=== PATIENT | female | born 1945 | race Caucasian/White ===

== ENCOUNTER 2016-10-16 15:16 | Emergency (ER) | payer MEDICARE, OTHER ==
[2016-10-16 17:49] LABS: HEMOGLOBIN 13.8 gm/dl (12.3-15.3); RED BLOOD COUNT 4.58 M/UL (4.00-5.10); WHITE BLOOD COUNT 7.9 K/UL (4.5-11.0)
== END 2016-10-16 21:56 | disposition home or self-care (01) ==
LOC: ER1 15:16
PROVIDERS: Specialist/Technologist Athletic Trainer
DX: K43.9 Ventral hernia without obstruction or gangrene (principal); R94.4 Abnormal results of kidney function studies; R74.0 Nonspecific elevation of levels of transaminase and lactic acid dehydrogenase [LDH]; I10 Essential (primary) hypertension; I25.10 Atherosclerotic heart disease of native coronary artery without angina pectoris; E03.9 Hypothyroidism, unspecified; Z90.49 Acquired absence of other specified parts of digestive tract; F17.200 Nicotine dependence, unspecified, uncomplicated; Z88.6 Allergy status to analgesic agent; Z79.899 Other long term (current) drug therapy
CPT/HCPCS: 36415; 80053; 81001; 82140; 82550; 82553; 83605; 83874; 84439; 84443; 84484; 85025; 99284

== ENCOUNTER → 2016-11-03 | Outpatient (CLI) | payer MEDICARE, OTHER | LOC: KOH-I 13:00 | DX: F17.210 Nicotine dependence, cigarettes, uncomplicated (principal); R91.8 Other nonspecific abnormal finding of lung field | CPT/HCPCS: G0297 ==

== ENCOUNTER → 2016-11-18 | Outpatient (CLI) | payer MEDICARE, OTHER | LOC: RAD 16:00 | DX: R05 Cough (principal); J84.9 Interstitial pulmonary disease, unspecified | CPT/HCPCS: 71020 ==

== ENCOUNTER 2020-07-03 08:36 | Emergency (ER) | payer MEDICARE, OTHER ==
[~2020-07-03 08:36] MED LIST: AUGMENTIN 875-1 EACH PO; AZITHROMYCIN250 MG PO; CITALOPRAM HBR20 MG PO; CRESTOR 10 MG T10 MG PO; DILTIAZEM 24HR240 M1 PO; ERYTHROMYCIN O3.5 GM OD; FAMOTIDINE20 MG PO; GABAPENTIN300 MG PO; GABAPENTIN600 MG PO; LEVOTHYROXINE137 MCG PO; LISINOPRIL20 MG PO; MACROBID 100 M100 MG PO; NORTRIPTYLINE H25 MG PO; OXYCODON-ACETA1 EAC1 PO; PREDNISONE20 MG PO; PROTONIX 40 MG40 M1 PO; VITAMIN B-121000 MC1 PO
[2020-07-03 10:02] LABS: HEMOGLOBIN 11.9 gm/dl (12.3-15.3); RED BLOOD COUNT 3.97 M/UL (4.00-5.10); WHITE BLOOD COUNT 15.1 K/UL (4.5-11.0)
[2020-07-03 11:52] LABS: BUN/CREATININE RATIO 16 (0-10)
[2020-07-03] MEDS ORDERED: CEFUROXIME500 MG PO (15:51)
[2020-07-11] MEDS ORDERED: NEURONTIN600 MG PO (12:58)
[2020-07-12] MEDS ORDERED: PERCOCET 7.5-31 EACH PO (12:56)
== END 2020-07-03 17:05 | disposition home or self-care (01) ==
LOC: ER1 08:36
PROVIDERS: Family Medicine
DX: J18.9 Pneumonia, unspecified organism (principal); J44.9 Chronic obstructive pulmonary disease, unspecified; N39.0 Urinary tract infection, site not specified; R91.8 Other nonspecific abnormal finding of lung field; I48.91 Unspecified atrial fibrillation; R60.0 Localized edema; E66.01 Morbid (severe) obesity due to excess calories; F17.200 Nicotine dependence, unspecified, uncomplicated; Z88.6 Allergy status to analgesic agent; Z88.8 Allergy status to other drugs, medicaments and biological substances; Z20.822 Contact with and (suspected) exposure to COVID-19
CPT/HCPCS: 36600; 71045; 80053; 81001; 82550; 82553; 82803; 83605; 83874; 83880; 84484; 85025; 87077; 87086; 87186; 93005; 96374; 99285; J2930; U0002

== ENCOUNTER 2020-08-04 22:51 | Inpatient (IN) | payer MEDICARE, OTHER ==
[~2020-08-04] VITALS: Ht 170.2 cm; Wt 130.2 kg
[~2020-08-04 22:51] MED LIST changes: +CEFUROXIME500 MG PO; +NEURONTIN600 MG PO; +PERCOCET 7.5-31 EACH PO
[2020-08-04 23:32] LABS: RED BLOOD COUNT 3.73 M/UL (4.00-5.10); WHITE BLOOD COUNT 21.2 K/UL (4.5-11.0)
[2020-08-05 00:01] LABS: BUN/CREATININE RATIO 18 (0-10)
[2020-08-05] MEDS ORDERED: PEPCID20 MG PO (12:59)
[2020-08-06 04:57] LABS: HEMOGLOBIN 10.4 gm/dl (12.3-15.3); RED BLOOD COUNT 3.64 M/UL (4.00-5.10); WHITE BLOOD COUNT 21.2 K/UL (4.5-11.0)
[2020-08-07 05:37] LABS: HEMOGLOBIN 9.3 gm/dl (12.3-15.3); WHITE BLOOD COUNT 19.4 K/UL (4.5-11.0)
[2020-08-07 05:48] LABS: RED BLOOD COUNT 3.24 M/UL (4.00-5.10)
--- NOTE | 2020-08-08 22:50 | NUR ---
HR REMAINS 110-120, RESP RATE 30, BLOOD PRESSURE STABLE, PHYSICIAN IN UNIT UPDATED ON PT, MORPHINE 2MG GIVEN SLOW IVP, RESULTS WILL FOLLOW
--- NOTE | 2020-08-09 03:30 | NUR ---
PT BECOMING INCREASING TACHYAPNEIC, PULLING AT BIPAP, HR UP TO 110, ATIVAN 1MG GIVEN PER PRN ORDER, RESULTS WILL FOLLOW
[2020-08-09 05:37] LABS: HEMOGLOBIN 10.5 gm/dl (12.3-15.3); WHITE BLOOD COUNT 16.4 K/UL (4.5-11.0)
[2020-08-09 05:48] LABS: RED BLOOD COUNT 3.66 M/UL (4.00-5.10)
== END 2020-08-09 13:58 | disposition expired | DRG 871 ==
LOC: ER1 22:51 → CDU 08-05 06:23 → CCU 08-05 06:23
PROVIDERS: Family Medicine; Internal Medicine Pulmonary Disease; ADMIT Internal Medicine
PROC: 5A1945Z Respiratory Ventilation, 24-96 Consecutive Hours (ICD-10-PCS; 2020-08-06)
PROC: 05HM33Z Insertion of Infusion Device into Right Internal Jugular Vein, Percutaneous Approach (ICD-10-PCS; 2020-08-06)
PROC: B543ZZA Ultrasonography of Right Jugular Veins, Guidance (ICD-10-PCS; 2020-08-06)
PROC: 0BH17EZ Insertion of Endotracheal Airway into Trachea, Via Natural or Artificial Opening (ICD-10-PCS; 2020-08-06)
PROC: 5A09357 Assistance with Respiratory Ventilation, Less than 24 Consecutive Hours, Continuous Positive Airway Pressure (ICD-10-PCS; 2020-08-06)
PROC: 0BB48ZX Excision of Right Upper Lobe Bronchus, Via Natural or Artificial Opening Endoscopic, Diagnostic (ICD-10-PCS; principal; 2020-08-06 11:45)
PROC: 0W9930Z Drainage of Right Pleural Cavity with Drainage Device, Percutaneous Approach (ICD-10-PCS; 2020-08-07)
DX: A41.89 Other specified sepsis (principal); J15.211 Pneumonia due to Methicillin susceptible Staphylococcus aureus; J96.21 Acute and chronic respiratory failure with hypoxia; G93.41 Metabolic encephalopathy; J15.0 Pneumonia due to Klebsiella pneumoniae; C34.91 Malignant neoplasm of unspecified part of right bronchus or lung; C79.31 Secondary malignant neoplasm of brain; N17.9 Acute kidney failure, unspecified; E87.2 Acidosis; Z20.822 Contact with and (suspected) exposure to COVID-19; R57.9 Shock, unspecified; J91.0 Malignant pleural effusion; Z68.41 Body mass index [BMI] 40.0-44.9, adult; J44.0 Chronic obstructive pulmonary disease with (acute) lower respiratory infection; J98.11 Atelectasis; N30.90 Cystitis, unspecified without hematuria; D64.9 Anemia, unspecified; Z66 Do not resuscitate; Z51.5 Encounter for palliative care; B96.1 Klebsiella pneumoniae [K. pneumoniae] as the cause of diseases classified elsewhere; R65.20 Severe sepsis without septic shock; E03.9 Hypothyroidism, unspecified; G62.9 Polyneuropathy, unspecified; E78.5 Hyperlipidemia, unspecified; I10 Essential (primary) hypertension; F17.210 Nicotine dependence, cigarettes, uncomplicated; E66.9 Obesity, unspecified; G89.4 Chronic pain syndrome; R59.1 Generalized enlarged lymph nodes; F41.9 Anxiety disorder, unspecified; F32.9 Major depressive disorder, single episode, unspecified; K21.9 Gastro-esophageal reflux disease without esophagitis; E53.8 Deficiency of other specified B group vitamins; I48.91 Unspecified atrial fibrillation; Z90.49 Acquired absence of other specified parts of digestive tract; Z90.5 Acquired absence of kidney; Z99.81 Dependence on supplemental oxygen; Z88.6 Allergy status to analgesic agent; Z88.1 Allergy status to other antibiotic agents; Z88.5 Allergy status to narcotic agent; Z88.8 Allergy status to other drugs, medicaments and biological substances; Z79.890 Hormone replacement therapy; Z79.899 Other long term (current) drug therapy
CPT/HCPCS: 31500; 36415; 36600; 51702; 71045; 71275; 80053; 80307; 81001; 82550; 82553; 82803; 82962; 83605; 83880; 84484; 85025; 85027; 87040; 87070; 87077; 87086; 87186; 87205; 88341; 88342; 93005; 94002; 94003; 94640; 94660; 94664; 94760; 96365; 96367; 99285; C1729; C9113; G0378; J0171; J0330; J1650; J1940; J1956; J2020; J2060; J2185; J2250; J2270; J2310; J2704; J2920; J2930; J3010; J3370; J7030; J7040; J7070; Q9967; U0002